=== PATIENT | female | born 1970 | race Caucasian/White ===

== ENCOUNTER 2018-08-03 12:11 | Inpatient (IN) | payer OTHER ==
[~2018-08-03] VITALS: Ht 157.5 cm; Wt 100.7 kg
[2018-08-07] MEDS ORDERED: ULTRAM50 MG PO (14:58)
[2018-08-07] MEDS ORDERED: GAS-X125 MG PO (14:58)
[2018-08-07] MEDS ORDERED: COLACE100 MG PO (14:58)
[2018-08-07] MEDS ORDERED: KEFLEX500 MG PO (14:58)
[2018-08-07] MEDS ORDERED: LOVENOX40 MG/0.4 SUBCUTANEO (15:18)
== END 2018-08-07 16:01 | disposition home or self-care (01) | DRG 741 ==
LOC: O/R 08-04 02:45 → OB/GYN 08-04 08:53 → O/R 08-04 08:53 → SURG 08-04 08:53 → O/R 08-04 12:07 → OB/GYN 08-04 15:59 → SURG 08-05 13:37
PROVIDERS: ADMIT Obstetrics & Gynecology Gynecologic Oncology
PROC: 0UT2FZZ Resection of Bilateral Ovaries, Via Natural or Artificial Opening With Percutaneous Endoscopic Assistance (ICD-10-PCS; 2018-08-04)
PROC: 0UT7FZZ Resection of Bilateral Fallopian Tubes, Via Natural or Artificial Opening With Percutaneous Endoscopic Assistance (ICD-10-PCS; 2018-08-04)
PROC: 0UT9FZZ Resection of Uterus, Via Natural or Artificial Opening With Percutaneous Endoscopic Assistance (ICD-10-PCS; principal; 2018-08-04 02:45)
DX: C54.1 Malignant neoplasm of endometrium (principal)